=== PATIENT | male | born 2000 | race Caucasian/White ===

== ENCOUNTER 2023-10-24 10:19 | Day surgery (SDC) | payer SELFPAY ==
[2023-10-23 10:46] VITALS: BMI 26.6
[2023-10-24] MEDS ORDERED: Midazolam HCl 2 mg/2 ml Vial ONE (11:39)
[2023-10-24] MEDS ORDERED: fentaNYL 50 mcg/mL 1 mL Vial ONE ×3 (11:39→13:06)
[2023-10-24] MEDS ORDERED: Bupivacaine PF 0.5% 30 ML VIAL ONE (11:40)
[2023-10-24] MEDS ORDERED: Bupivacaine HCl 0.5%/Epinephrine 1:200,000/PF 30 ml Vial ONE (12:30)
[2023-10-24] MEDS ORDERED: Dexamethasone 4 mg/ml Vial ONE (12:33)
[2023-10-24] MEDS ORDERED: Lidocaine 1% PF 5 ML VIAL ONE (12:33)
[2023-10-24] MEDS ORDERED: Ondansetron PF 4 MG/2 ML Vial ONE (12:33)
[2023-10-24] MEDS ORDERED: PROPOFOL 20 ML ONE (12:34)
[2023-10-24] MEDS ORDERED: CEFAZOLIN 2 GM VIAL ONE (12:41)
[2023-10-24] MEDS ORDERED: Sodium Chloride 0.9% 100 ML ONE (12:41)
[2023-10-24] MEDS ORDERED: Ketorolac Tromethamine 30 MG (1 mL) VIAL ONE (13:10)
[2023-10-24] MEDS ORDERED: Meperidine HCl/PF 25 MG (1 mL) VIAL ONE (14:12)
== END 2023-10-24 15:40 | disposition home or self-care (01) ==
LOC: SDC 10:19
PROVIDERS: ATTEND Orthopaedic Surgery
PROC: 0QSK04Z Reposition Left Fibula with Internal Fixation Device, Open Approach (ICD-10-PCS; principal; 2023-10-24)
PROC: 0QSH04Z Reposition Left Tibia with Internal Fixation Device, Open Approach (ICD-10-PCS; principal; 2023-10-24)
DX: S82.842A Displaced bimalleolar fracture of left lower leg, initial encounter for closed fracture (principal); Z79.899 Other long term (current) drug therapy; X58.XXXA Exposure to other specified factors, initial encounter
CPT/HCPCS: C1713; J0665; J1100; J1885; J2175; J2250; J2405; J2704; J3010; J3490